=== PATIENT | female | born 1970 | race Caucasian/White ===

== ENCOUNTER 2017-02-18 08:17 | Emergency (ER) | payer BC ==
[2017-02-18] MEDS ORDERED: Meperidine PF 50 MG/ML Syringe IM ONE (08:34)
[2017-02-18] MEDS ORDERED: hydrOXYzine HCl 50 MG/ML SDV IM ONE (08:35)
[2017-02-18] MEDS ORDERED: Acetaminophen/HYDROcodone 325-5 MG Tab PO ONE (08:35)
[2017-02-18] MEDS ORDERED: Penicillin V Potassium 250 MG Tab PO ONE (08:36)
--- NOTE | 2017-02-19 00:05 | ER ---
DATE SEEN: 02/18/2017 TIME SEEN: 0830 hours. CHIEF COMPLAINT: Tooth pain. HISTORY OF PRESENT ILLNESS: This is a 47-year-old female with pain in the right cheek, upper jaw that radiates down to the right side of the jaw and up to the head. Started suddenly, moderate to severe. Ibuprofen and Tylenol not helping. REVIEW OF SYSTEMS: No fever or chills. No sore throat. No chest pain or shortness of breath. ALLERGIES: Morphine gives a rash. MEDICATIONS: None. PHYSICAL EXAMINATION: VITAL SIGNS: Afebrile, blood pressure, and temperature are normal. HEENT: Oral examination revealed a large cavity on tooth #6 on the right upper jaw area. There is a huge cavity there and the gum is slightly swollen. NECK: Supple. IMPRESSION: Tooth pain. TREATMENT: 1. Demerol and Vistaril IM. 2. Penicillin and hydrocodone to use p.r.n. for pain. 3. Follow up with dentist tomorrow. /[id number] TEX/UTE
== END 2017-02-18 08:50 | disposition home or self-care (01) ==
LOC: FB.ED 08:17
DX: K02.9 Dental caries, unspecified (principal); Z88.5 Allergy status to narcotic agent
CPT/HCPCS: 96372; 99283; J2175; J3410; A9270-GY